=== PATIENT | female | born 1990 | race Caucasian/White ===

== ENCOUNTER 2016-09-17 14:02 | Inpatient (IN) | payer OTHER ==
[~2016-09-17] VITALS: Ht 160 cm; Wt 91.6 kg
[~2016-09-17 14:02] MED LIST: AMOX500T3 PO; AMPH10TA2 PO; GABA-113 PO; METH5TAB4 PO; VENL100T2 PO; [UNRECOGNIZED DRUG - CODE] PO
[2016-09-17] MEDS ORDERED: OXYTOCIN 30 UNITS/500ML NSS IV ONE (14:33)
[2016-09-17 15:10] VITALS: Ht 160 cm; Wt 91.6 kg
[2016-09-17] MEDS: LACTATED RINGER'S 1000ML 1,000 ML IV SCH ×2 (15:13→16:06)
[2016-09-17] MEDS ORDERED: FENTANYL CITRATE INJ 50 MCG/1 ML 2 ML VIAL ONE (15:27)
[2016-09-17] MEDS ORDERED: EpHEDrine SULFATE INJ 50 MG/ML AMP ONE (15:27)
[2016-09-17] MEDS ORDERED: BUPIVACAINE 0.25% 30 ML VIAL ONE (15:27)
[2016-09-17] MEDS ORDERED: FENTANYL 2MCG/ML ROPIV 1.25MG/ML 100ML BAG EPI ONE (15:27)
[2016-09-17 15:46] LABS: HEMATOCRIT 38.6 % (37-47); MEAN CELL VOLUME 86.9 fL (80-100); MEAN CORPUSCULAR HEMOGLOBIN 30.9 pg (25-34); MEAN CORPUSCULAR HGB CONC 35.5 g/dl (32-36); PLATELET COUNT 304 K/uL (130-400); RED BLOOD COUNT 4.44 M/uL (4.2-5.4); WHITE BLOOD COUNT 17.23 K/uL (4.8-10.8)
[2016-09-17] MEDS ORDERED: LACTATED RINGER'S 1000ML 500 ML IV PRN ×2 (16:28→18:59)
[2016-09-17] MEDS ORDERED: NALOXONE HCL INJ 1 MG in SODIUM CHLORIDE 0.9% 1000ML 1,000 ML IV PRN (16:28)
[2016-09-17] MEDS ORDERED: EpHEDrine SULFATE INJ 50 MG/ML AMP IV PRN (16:30)
[2016-09-17] MEDS ORDERED: DiphenhydrAMINE HCL 50 MG/ML VIAL IV PRN (16:30)
[2016-09-17] MEDS ORDERED: NALBUPHINE HCL INJ 10 MG/ML AMP IV PRN (16:30)
[2016-09-17] MEDS ORDERED: ONDANSETRON INJ 2 MG/ML 2 ML VIAL IV PRN (16:30)
[2016-09-17] MEDS ORDERED: NALOXONE HCL INJ 0.4 MG/1 ML VIAL/CARP IV PRN (16:30)
[2016-09-17] MEDS ORDERED: FENTANYL 2MCG/ML ROPIV 1.25MG/ML 100ML BAG EPI PRN (16:30)
[2016-09-17] MEDS ORDERED: OXYTOCIN 30 UNITS/500ML NSS IV PRN ×2 (19:00→22:30)
[2016-09-17] MEDS ORDERED: BENZOCAINE 20% AER SPR 82.5 GM CAN EXT PRN (22:30)
[2016-09-17] MEDS ORDERED: SUPERCREAM 0.870 % 15GM JAR EXT PRN (22:30)
[2016-09-17] MEDS ORDERED: OXYCODONE/ACETAMINOPHEN 5-325 TAB PO PRN (22:30)
[2016-09-17] MEDS ORDERED: HYDROCORTISONE ACETATE 25 MG SUPP PR PRN (22:30)
[2016-09-17] MEDS ORDERED: ACETAMINOPHEN/CODEINE 300/30MG TAB PO PRN ×2 (22:30)
[2016-09-17] MEDS ORDERED: ACETAMINOPHEN 325 MG TAB PO PRN (22:30)
[2016-09-17] MEDS ORDERED: LANOLIN OINT EXT PRN ×2 (22:30)
[2016-09-17] MEDS: IBUPROFEN 600 MG TAB PO PRN (22:59)
[2016-09-18 00:30] VITALS: BP 124/77; PULSE 86; TEMP 36.9; O2SAT 98
[2016-09-18 03:30] VITALS: BP 112/54; PULSE 76; TEMP 36.8; O2SAT 97
--- NOTE | 2016-09-18 03:52 | DELIVERY SUMMARY ---
DATE OF OPERATION: 09/17/2016 DELIVERY NOTE The patient delivered a live male in occiput posterior presentation. There was a loose nuchal cord, which was easily reduced. There was also meconium, which was known. was delivered and placed on mother's abdomen. Cord was clamped and cut after 1 minute. The 's weight and Apgars are in the pediatric record. Placenta was spontaneously delivered. Inspection of the placenta shows a grossly normal placenta. The placenta was sent to pathology for pathologic analysis. ESTIMATED BLOOD LOSS: 400 mL. Inspection of the perineum showed no lacerations or tears. All instruments were removed from the vagina including sponges and retractors. Baby and mother are doing well in recovery. I attest to the content of the Intraoperative Record and any orders documented therein. Any exception s are noted below.
[2016-09-18 07:36] LABS: HEMATOCRIT 35.9 % (37-47)
--- NOTE | 2016-09-18 08:03 | Anesthesia Procedure Note ---
Anesthesia Epidural Removal Nt Date & Time Sep 18, 2016 at 08:03 Vital Signs Pain Intensity: 0.0 Vital Signs Past 12 Hours Date Time Temp Pulse Resp B/P (MAP) Pulse Ox O2 Delivery O2 Flow Rate FiO2 09/18/16 03:30 36.8 76 18 112/54 (73) 97 Room Air 09/18/16 00:30 Room Air 09/18/16 00:30 36.9 86 18 124/77 (93) 98 Room Air Notes Mental Status: alert / awake / arousable, participated in evaluation Nausea / Vomiting: adequately controlled Pain: adequately controlled Airway Patency, RR, SpO2: stable & adequate BP & HR: stable & adequate Hydration State: stable & adequate Neuraxial Anesthesia: was administered, sensory block is resolved Anesthetic Complications: no major complications apparent, pt satisfied with anesthetic care Epidural: removed without complications, with tip intact
[2016-09-18 08:10] VITALS: BP 94/56; PULSE 75; TEMP 36.7; O2SAT 97
[2016-09-18] MEDS: FERROUS SULFATE 325 MG TAB PO SCH (08:20)
[2016-09-18] MEDS: IBUPROFEN 600 MG TAB PO PRN ×2 (08:20→20:17)
[2016-09-18] MEDS: PRENATAL VITAMIN TAB PO SCH (08:20)
[2016-09-18] MEDS: DOCUSATE SODIUM 100 MG CAP PO SCH ×2 (08:20→20:17)
--- NOTE | 2016-09-18 09:20 | OB/GYN Progress Note ---
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 Subjective conversation w/ patient, physical exam Ambulation: ambulating normally Voiding: no voiding problems Passing Gas: Yes Diet Tolerance: Regular Diet Lochia: Small Feeding Type: Breast Feeding Pain: 03/07 Notes: Doing well. Pain well controlled. Lochia decreasing. Tolerating regular diet. Ambulating without difficulty. Objective Vital Signs Date Time Temp Pulse Resp B/P (MAP) Pulse Ox O2 Delivery O2 Flow Rate FiO2 09/18/16 03:30 36.8 76 18 112/54 (73) 97 Room Air 09/18/16 00:30 Room Air 09/18/16 00:30 36.9 86 18 124/77 (93) 98 Room Air Physical Exam General Appearance: WELL-APPEARING Respiratory/Chest: chest non-tender, lungs clear Cardiovascular: regular rate, rhythm Abdomen: normal bowel sounds, soft Fundus: Firm Extremities: normal range of motion, non-tender, no calf tenderness Laboratory Results Last 24 Hours Test 09/17/16 15:36 09/18/16 07:19 White Blood Count 17.23 K/uL Red Blood Count 4.44 M/uL Hemoglobin 13.7 g/dL 12.5 g/dL Hematocrit 38.6 % 35.9 % Mean Corpuscular Volume 86.9 fL Mean Corpuscular Hemoglobin 30.9 pg Mean Corpuscular Hemoglobin Concent 35.5 g/dl RDW Standard Deviation 41.9 fL RDW Coefficient of Variation 13.1 % Platelet Count 304 K/uL Mean Platelet Volume 10.0 fL Assessment and Plan Post- Day Number: 1 Continue Routine Care: -Continue routine care -Anticipate d/c home tomorrow.
[2016-09-18] MEDS: VENLAFAXINE HCL 50 MG TAB PO SCH (09:35)
[2016-09-18 11:25] VITALS: BP 115/69; PULSE 56; TEMP 36; O2SAT 100
[2016-09-18 15:42] VITALS: BP 109/69; PULSE 84; TEMP 36.5
[2016-09-18] MEDS: AMPHETAMINE ASP/SULF/DEXTRAMPH 10 MG TAB PO SCH (18:11)
[2016-09-18] MEDS ORDERED: BISACODYL 5 MG TABEC PO SCH (20:00)
[2016-09-18 20:15] VITALS: BP 123/67; PULSE 94; TEMP 36.5
[2016-09-19 00:45] VITALS: BP 124/81; PULSE 79; TEMP 36.7
[2016-09-19 06:35] LABS: HEMATOCRIT 37.8 % (37-47); MEAN CELL VOLUME 89.8 fL (80-100); MEAN CORPUSCULAR HEMOGLOBIN 29.5 pg (25-34); MEAN CORPUSCULAR HGB CONC 32.8 g/dl (32-36); MEAN PLATELET VOLUME 9.7 fL (7.4-10.4); PLATELET COUNT 286 K/uL (130-400); RED BLOOD COUNT 4.21 M/uL (4.2-5.4); WHITE BLOOD COUNT 13.68 K/uL (4.8-10.8)
[2016-09-19] MEDS ORDERED: BISACODYL 10 MG SUPP PR PRN (07:00)
--- NOTE | 2016-09-19 07:22 | OB/GYN Progress Note ---
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 Subjective conversation w/ patient, physical exam Ambulation: ambulating normally Voiding: no voiding problems Passing Gas: Yes Diet Tolerance: Regular Diet Lochia: Moderate Feeding Type: Breast Feeding Review of Systems Constitutional: No fever, No chills, No sweats, No weight loss, No weakness, No fatigue, No problem reported Respiratory: No cough, No sputum, No wheezing, No shortness of breath, No dyspnea on exertion, No dyspnea at rest, No hemoptysis, No problem reported Cardiac: No chest pain, No orthopnea, No PND, No edema, No claudication, No palpitations, No problem reported Breast: No see HPI, No breast lump, No change in shape, No nipple discharge, No breast pain, No problem reported Abdomen: No pain, No nausea, No vomiting, No diarrhea, No constipation, No GI bleeding, No problem reported Female : No see HPI, No dysuria, No urinary frequency, No hematuria, No incontinence, No abnormal vaginal bleeding, No vaginal discharge, No problem reported Objective Vital Signs Date Time Temp Pulse Resp B/P (MAP) Pulse Ox O2 Delivery O2 Flow Rate FiO2 09/19/16 00:45 Room Air 09/19/16 00:45 36.7 79 20 124/81 (95) Room Air 09/18/16 20:15 36.5 94 16 123/67 (85) Room Air 09/18/16 15:42 36.5 84 18 109/69 (82) Room Air 09/18/16 15:25 Room Air 09/18/16 11:25 36.0 56 18 115/69 (84) 100 Room Air 09/18/16 08:10 97 Room Air 09/18/16 08:10 36.7 75 16 94/56 (69) 97 Room Air Physical Exam General Appearance: WELL-APPEARING Respiratory/Chest: chest non-tender Cardiovascular: regular rate, rhythm Abdomen: normal bowel sounds Fundus: Firm Incision Description: Clean, Dry & Intact Extremities: normal range of motion Laboratory Results Last 24 Hours Test 09/18/16 07:19 09/19/16 06:23 Hemoglobin 12.5 g/dL 12.4 g/dL Hematocrit 35.9 % 37.8 % White Blood Count 13.68 K/uL Red Blood Count 4.21 M/uL Mean Corpuscular Volume 89.8 fL Mean Corpuscular Hemoglobin 29.5 pg Mean Corpuscular Hemoglobin Concent 32.8 g/dl RDW Standard Deviation 44.7 fL RDW Coefficient of Variation 13.6 % Platelet Count 286 K/uL Mean Platelet Volume 9.7 fL Assessment and Plan Post- Day Number: 2 Continue Routine Care: Day #2 Pt doing well d/c home with instruction
[2016-09-19] MEDS ORDERED: MTR600X PO (07:23)
--- NOTE | 2016-09-19 07:24 | Discharge Instructions ---
Discharge Instructions Date of Service Sep 19, 2016. Admission Reason for Admission: Check Labor Discharge Discharge Diagnosis / Problem: Discharge Goals Goal(s): Routine recovery after delivery Activity Recommendations Activity Limitations: resume your previous activity . Current Hospital Diet Patient's current hospital diet: Regular OB Diet Discharge Diet Recommended Diet: Regular Diet Pending Studies Studies pending at discharge: no Medical Emergencies . Who to Call and When: Medical Emergencies: If at any time you feel your situation is an emergency, please call 911 immediately. . Non-Emergent Contact Non-Emergency issues call your: Specialist . . "Provider Documentation" section prepared by Arjun Traore. . VTE Core Measure Inpt VTE Proph given/why not?: Treatment not indicated
[2016-09-19 08:00] VITALS: BP 120/84; PULSE 87; TEMP 36.5; O2SAT 99
[2016-09-19] MEDS: IBUPROFEN 600 MG TAB PO PRN (08:26)
[2016-09-19] MEDS: VENLAFAXINE HCL 50 MG TAB PO SCH (08:26)
[2016-09-19] MEDS: PRENATAL VITAMIN TAB PO SCH (08:26)
[2016-09-19] MEDS: FERROUS SULFATE 325 MG TAB PO SCH (08:26)
[2016-09-19] MEDS: DOCUSATE SODIUM 100 MG CAP PO SCH (08:27)
[2016-09-19] MEDS: AMPHETAMINE ASP/SULF/DEXTRAMPH 10 MG TAB PO SCH (09:11)
[2016-09-19 14:10] VITALS: BP_DIAS 84; PULSE 87; TEMP 36.5
== END 2016-09-19 14:10 | disposition home or self-care (01) | DRG 775 ==
LOC: C.OPB 14:02 → C.LD 14:03 → C.OPB 14:27 → C.LD 14:27 → C.OBG 09-18 00:30
PROVIDERS: ADMIT Obstetrics & Gynecology; ATTEND Obstetrics & Gynecology
PROC: 10E0XZZ Delivery of Products of Conception, External Approach (ICD-10-PCS; principal; 2016-09-17)
DX: O69.81X1 Labor and delivery complicated by cord around neck, without compression, fetus 1 (principal); Z37.0 Single live birth; Z3A.37 37 weeks gestation of pregnancy

== ENCOUNTER 2017-05-23 00:25 | Emergency (ER) | payer OTHER ==
[~2017-05-23] VITALS: Ht 157.5 cm; Wt 70.2 kg
[~2017-05-23 00:25] MED LIST changes: -AMOX500T3 PO; +FLUO20CA34 PO; -GABA-113 PO; -METH5TAB4 PO; +MTR600X PO
[2017-05-23 00:29] VITALS: TEMP 36.5; Ht 157.5 cm; Wt 70.2 kg
[2017-05-23 00:56] LABS: BASO % 0.3 %; BASO ABS # 0.03 K/uL (0-0.2); EOS % 3.2 %; EOS ABS # 0.35 K/uL (0-0.5); HEMATOCRIT 42.1 % (37-47); HEMOGLOBIN 15.6 g/dL (12.0-16.0); IG# 0.02 K/uL (0.00-0.02); LYMPH % 36.9 %; LYMPH ABS # 4.01 K/uL (1.2-3.4); MEAN CORPUSCULAR HEMOGLOBIN 32.2 pg (25-34); MEAN CORPUSCULAR HGB CONC 37.1 g/dl (32-36); MEAN PLATELET VOLUME 9.4 fL (7.4-10.4); MONO % 8.6 %; MONO ABS # 0.93 K/uL (0.11-0.59); NEUT % 50.8 %; NEUT ABS # 5.52 K/uL (1.4-6.5); PLATELET COUNT 311 K/uL (130-400); RED CELL DISTRIBUTION WIDTH CV 13.9 % (11.5-14.5); RED CELL DISTRIBUTION WIDTH SD 44.7 fL (36.4-46.3); WHITE BLOOD COUNT 10.86 K/uL (4.8-10.8)
--- NOTE | 2017-05-23 01:02 | EMERGENCY ROOM VISIT NOTE ---
History Report prepared by Tish: Ryne Perdomo Under the Supervision of: Dr. Natalie Stovall M.D. First contact with patient: 00:32 Chief Complaint: MENTAL HEALTH EVALUATION Stated Complaint: EMOTIONAL History of Present Illness The patient is a 26 year old female who presents to the Emergency Room with complaints of worsening "spinning" dizziness, chills, and nausea that she began to experience Sunday afternoon, 2 days ago. The patient states that she has been on Effexor as an antidepressant. She was talking to her doctor about getting off of Effexor and starting Prozac. She stopped Effexor on Sunday, two days ago. She has experienced the spinning and nauseous sensations in the past if she missed a dosage of the Effexor. She was initially on 150 mg + 37.5 mg of Effexor. First, she stopped taking the 37.5 mg, and then stopped the 150 mg all together. The patient has been started on 20 mg of Prozac. She denies any alcohol/substance abuse. 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 A total of 10 systems reviewed and were otherwise negative. Past Medical & Surgical Medical Problems: (1) Anxiety disorder Family History Cancer Diabetes mellitus Heart disease Kidney disease Lung disease Social History Smoking Status: Current Every Day Smoker Alcohol Use: none Marital Status: single Housing Status: lives with family Occupation Status: employed Current/Historical Medications Scheduled Amphetamine-Dextroamphetamine 20MG (Adderall 20MG), 20 MG PO every afternoon Amphetamine-Dextroamphetamine 30MG (Adderall 30MG), 30 MG PO QAM Fluoxetine Hcl (Prozac), 20 MG PO QAM Gabapentin (Neurontin), 200 MG PO TID Venlafaxine Hcl (Effexor Extended Rel), 150 MG PO DAILY Venlafaxine Hcl (Effexor), 1.5 TAB PO DAILY Allergies Coded Allergies: Azithromycin (Verified Adverse Reaction, Unknown, NAUSEA/VOMITING, 05/23/17 ) Physical Exam Vital Signs Date Time Temp Pulse Resp B/P (MAP) Pulse Ox O2 Delivery O2 Flow Rate FiO2 05/23/17 03:32 90 18 100/68 97 05/23/17 00:29 36.5 111 20 129/83 99 Room Air Physical Exam Vital signs reviewed. General: Well-appearing young female, in no significant distress. HEENT: No scleral icterus, PERRLA, neck supple. Atraumatic. Cardiovascular: Regular rate and rhythm, no extra sounds. Pulmonary: Clear to auscultation bilaterally, normal work of breathing. Abdomen: Soft, nontender, nondistended, positive bowel sounds. Musculoskeletal: Atraumatic, no peripheral edema. Neurologic: Patient awake alert and oriented x 3, full strength in all 4 extremities. Cranial nerves 2 through 12 grossly intact. Skin: Warm, dry, no rash Medical Decision & Procedures Laboratory Results 05/23/17 00:43 Red Blood Count 4.84, Mean Corpuscular Volume 87.0, Mean Corpuscular Hemoglobin 32.2, Mean Corpuscular Hemoglobin Concent 37.1, Mean Platelet Volume 9.4, Neutrophils (%) (Auto) 50.8, Lymphocytes (%) (Auto) 36.9, Monocytes (%) (Auto) 8.6, Eosinophils (%) (Auto) 3.2, Basophils (%) (Auto) 0.3, Neutrophils # (Auto) 5.52, Lymphocytes # (Auto) 4.01, Monocytes # (Auto) 0.93, Eosinophils # (Auto) 0.35, Basophils # (Auto) 0.03 05/23/17 00:43 Test 05/23/17 00:35 05/23/17 00:43 Urine Color YELLOW Urine Appearance CLOUDY (CLEAR) Urine pH 7.5 (4.5-7.5) Urine Specific Girdler 1.018 (1.000-1.030) Urine Protein NEG (NEG) Urine Glucose (UA) NEG (NEG) Urine Ketones NEG (NEG) Urine Occult Blood NEG (NEG) Urine Nitrite NEG (NEG) Urine Bilirubin NEG (NEG) Urine Urobilinogen NEG (NEG) Urine Leukocyte Esterase NEG (NEG) Urine WBC (Auto) 1-5 /hpf (0-5) Urine RBC (Auto) 0-4 /hpf (0-4) Urine Hyaline Casts (Auto) 1-5 /lpf (0-5) Urine Epithelial Cells (Auto) >30 /lpf (0-5) Urine Bacteria (Auto) 2+ (NEG) Urine Test NEG (NEG) Urine Opiates Screen NEG (NEG) Urine Methadone, Qualitative NEG (NEG) Urine Barbiturates NEG (NEG) Urine Phencyclidine (PCP) Level NEG (NEG) Ur Amphetamine/Methamphetamine POS (NEG) MDMA (Ecstasy) Screen NEG (NEG) Urine Benzodiazepines Screen NEG (NEG) Urine Cocaine Metabolite NEG (NEG) Urine Marijuana (THC) POS (NEG) White Blood Count 10.86 K/uL (4.8-10.8) Red Blood Count 4.84 M/uL (4.2-5.4) Hemoglobin 15.6 g/dL (12.0-16.0) Hematocrit 42.1 % (37-47) Mean Corpuscular Volume 87.0 fL (80-100) Mean Corpuscular Hemoglobin 32.2 pg (25-34) Mean Corpuscular Hemoglobin Concent 37.1 g/dl (32-36) Platelet Count 311 K/uL (130-400) Mean Platelet Volume 9.4 fL (7.4-10.4) Neutrophils (%) (Auto) 50.8 % Lymphocytes (%) (Auto) 36.9 % Monocytes (%) (Auto) 8.6 % Eosinophils (%) (Auto) 3.2 % Basophils (%) (Auto) 0.3 % Neutrophils # (Auto) 5.52 K/uL (1.4-6.5) Lymphocytes # (Auto) 4.01 K/uL (1.2-3.4) Monocytes # (Auto) 0.93 K/uL (0.11-0.59) Eosinophils # (Auto) 0.35 K/uL (0-0.5) Basophils # (Auto) 0.03 K/uL (0-0.2) RDW Standard Deviation 44.7 fL (36.4-46.3) RDW Coefficient of Variation 13.9 % (11.5-14.5) Immature Granulocyte % (Auto) 0.2 % Immature Granulocyte # (Auto) 0.02 K/uL (0.00-0.02) Anion Gap 7.0 mmol/L (3-11) Est Creatinine Clear Calc Drug Dose 99.5 ml/min Estimated GFR () 120.8 Estimated GFR (Non- 104.2 BUN/Creatinine Ratio 16.2 (10-20) Calcium Level 8.4 mg/dl (8.5-10.1) Total Bilirubin 0.3 mg/dl (0.2-1) Direct Bilirubin < 0.1 mg/dl (0-0.2) Aspartate Amino Transf (AST/SGOT) 15 U/L (15-37) Alanine Aminotransferase (ALT/SGPT) 22 U/L (12-78) Alkaline Phosphatase 82 U/L (45-117) Total Protein 7.7 gm/dl (6.4-8.2) Albumin 3.9 gm/dl (3.4-5.0) Thyroid Stimulating Hormone (TSH) 1.750 uIu/ml (0.300-4.500) Salicylates Level 4.4 mg/dl (2.8-20) Acetaminophen Level < 2 ug/ml (10-30) Ethyl Alcohol mg/dL < 3.0 mg/dl (0-3) Laboratory results per my review. Medications Administered Medications (Trade) Dose Ordered Sig/Christos Route Start Time Stop Time Status Last Admin Dose Admin Venlafaxine HCl (effeXOR TAB) 100 mg NOW STAT PO 05/23/17 01:08 05/23/17 01:09 DC 05/23/17 01:24 100 MG Ibuprofen (Motrin Tab) 600 mg NOW STAT PO 05/23/17 03:10 05/23/17 03:12 DC 05/23/17 03:30 600 MG ED Course 0056: Past medical records reviewed. The patient was evaluated in room A6. A complete history and physical examination was performed. 0108: Ordered effeXOR 100 mg PO. 0310: Ordered Motrin 600 mg PO. 0326: Upon reevaluation, the patient appeared to have improvement of her symptoms. I discussed findings with her. She verbalized agreement of the treatment plan. The patient was discharged home. Medical Decision Differential diagnosis: Etiologies such as toxicologic, detoxification, infection, hypoglycemia, electrolyte abnormalities, cardiac sources, intracerebral event, neurologic, as well as others were entertained. This pt was evaluated and appeared to be in no distress. Patient was medically cleared and evaluated by mental health. She is felt not to be in need of urgent inpatient treatment. Patient was given 100 mg of Effexor in the emergency department. A more gradual taper was written out for the patient and a prescription provided. She will continue to take her Prozac as prescribed. She was advised to follow-up with psychiatry this week by phone for further management. She will return to the ER for worsening of symptoms or any medical concerns. 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 I confirm that the note above accurately reflects all work, treatment, procedures, and medical decision making performed by me. Departure Information Dispostion Home / Self-Care Prescriptions Venlafaxine Hcl (Effexor) 75 Mg Tab 1.5 TAB PO DAILY for 7 Days, #25 TAB 1.5 tabs daily for 7 days, 1 tab daily for 7 days, 1/2 tab daily for 7 days, then stop Prov: Natalie Stovall M.D. 05/23/17 Referrals Jose Luis Johns M.D. (MEDICAL) (PCP) Forms HOME CARE DOCUMENTATION FORM, IMPORTANT VISIT INFORMATION Patient Instructions [facility] Additional Instructions Diagnosis: Effexor withdrawal Start 1.5 tablets daily for 7 days, then 1 tab daily for 7 days, then 0.5 tabs daily for 7 days. Continue your Prozac as prescribed. Drink plenty of clear fluids and avoid illicit substances. Follow-up with your psychiatric care providers this week by telephone. Return to the ER for worsening of symptoms or any medical concerns.
[2017-05-23] MEDS ORDERED: VENLAFAXINE HCL 50 MG TAB PO STA (01:08)
[2017-05-23 01:13] LABS: ALBUMIN 3.9 gm/dl (3.4-5.0); ALT/SGPT 22 U/L (12-78); AST/SGOT 15 U/L (15-37); BLOOD UREA NITROGEN 13 mg/dl (7-18); CALCIUM 8.4 mg/dl (8.5-10.1); CARBON DIOXIDE 27 mmol/L (21-32); CREATININE 0.78 mg/dl (0.60-1.20); GLUCOSE 96 mg/dl (70-99); POTASSIUM 3.4 mmol/L (3.5-5.1); SODIUM 138 mmol/L (136-145)
[2017-05-23 01:23] LABS: ALKALINE PHOSPHATASE 82 U/L (45-117); TOTAL PROTEIN 7.7 gm/dl (6.4-8.2)
[2017-05-23] MEDS ORDERED: EFFSR150 PO (01:26)
[2017-05-23] MEDS ORDERED: NRN/100 PO (01:26)
[2017-05-23] MEDS ORDERED: AMPH30TA2 PO (01:26)
[2017-05-23] MEDS ORDERED: AMPH20TA2 PO (01:26)
[2017-05-23] MEDS ORDERED: IBUPROFEN 600 MG TAB PO STA (03:10)
[2017-05-23] MEDS ORDERED: EFF75 PO (03:19)
[2017-05-23 03:32] VITALS: BP 100/68; PULSE 90; O2SAT 97
== END 2017-05-23 03:32 | disposition home or self-care (01) ==
LOC: C.EDB 00:26 → C.EDA 03:32
DX: F19.939 Other psychoactive substance use, unspecified with withdrawal, unspecified (principal); F17.200 Nicotine dependence, unspecified, uncomplicated; F41.9 Anxiety disorder, unspecified; Z88.1 Allergy status to other antibiotic agents; Z83.3 Family history of diabetes mellitus